=== PATIENT | female | born 1985 | race Two or more races ===

== ENCOUNTER 2021-07-20 15:00 | Outpatient (CLI) | payer SELFPAY ==
--- NOTE | 2021-07-20 15:00 | CER_PTH ---
PATIENT: CAREN HERNÁNDEZ LOC: [facility] U#:[id number] AGE/SX: 36/F ROOM: RE07/20/[address]: Dr. Dakotah Killian MD : 1985 BED: DIS: 07/20/2021 SPEC #: [id number] RECD: 07/21/21 11:08 STATUS: VAL JANIS #: [id number] ODALIS: 07/20/21 15:[address]: Dakotah Killian DEPT: SURGICAL PATHOLOGY RECD BY: Elaine Valentin Tissues: Uterine cervix, NOS Procedures: Surgery Specimen Level IV HEADER OPERATION: Cervical polyp removal PRE-OP DIAGNOSIS: Cervical polyp TISSUE SUBMITTED: Cervical polyp MICROSCOPIC DIAGNOSIS Cervical polyp, polypectomy: Benign endocervical polyp, inflamed AM:dennis 07/24/2021 MICROSCOPIC DESCRIPTION Slides are reviewed. GROSS DESCRIPTION Received in fixative is one container labeled with the patient's name and designated cervical polyp. The specimen consists of a mariano-pink polyp measuring 2 x 1 x 0.6 cm. The polyp is bisected. Also present in the container are multiple fragments of mariano mucoid tissue measuring in aggregate 3 x 2.5 x 0.3 cm. The specimen is totally submitted in two cassettes. / SJ:dennis 07/21/2021 TC:1 CPT: 17826
[2021-07-26 16:43] LABS: HPV Reflexed? NOT INDICATED
== END 2021-07-20 23:59 | disposition home or self-care (01) ==
LOC: LABSPEC 07-21 10:53
PROVIDERS: Visit Provider Obstetrics & Gynecology
DX: N84.1 Polyp of cervix uteri (principal)
CPT/HCPCS: 88175; 88305; G0145

== ENCOUNTER 2024-07-24 12:20 | Day surgery (SDC) | payer SELFPAY, OTHER ==
[2024-07-24] VITALS (8 sets, daily range): BP systolic 102–119; BP diastolic 75–79; PULSE 74–96; RESP 16; TEMP 36.2–36.5; O2SAT 98–100; BMI 36.0
[2024-07-24 13:07] LABS: Hematocrit 32.1 % (37-47); Hemoglobin 9.6 g/dL (12.0-15.0); Mean Corp Hgb Conc 29.9 g/dL (32-36); Mean Corpuscular Hgb 22.6 pg (27.0-32.0); Mean Corpuscular Volume 75.5 fL (81-99); Mean Platelet Vol. 10.5 fl (6.2-12.0); Platelet Count 419 K/mm3 (150-450); RBC Distribution Width CV 16.3 % (11.6-14.6); RBC Distribution Width SD 43.9 fl (35.1-43.9); Red Blood Count 4.25 M/mm3 (4.2-5.4); White Blood Count 5.3 K/mm3 (4.4-11.0)
[2024-07-24 13:15] LABS: Internal QC Validated? YES +Cl - CLEAR BKGD; Pregnancy, Urine Negative Negative
--- NOTE | 2024-07-24 13:36 | PCM.PRE.AN2 ---
ASA Classification* ASA Classification ASA Classification: 2 Assessment & Plan Anesthesia* Anesthesia Assessment Anesthesia Assessment: Discussed sedation and/or anesthesia options, risks, benefits, and alternatives with patient/parents/legal guardian/POA. Questions invited. The patient/parents/legal guardian/POA seems to understand and agrees to proceed with anesthesia plan. Reviewed the physical assessment, medical history, allergy history and patient home medications list prior to surgery/procedure/anesthetic and documented any changes. Performed airway and anesthesia risk assessments. Anesthesia Type Anesthesia Type: MAC History Source History Obtained from:: Patient and Chart Anesthesia Focused Assessment* Temperature: 97.7 F Pulse Rate: 96 Blood Pressure: 119/76 Respiratory Rate: 16 Pulse Ox: 98 Oxygen Delivery Method: Room Air Airway Assessment Mouth opens: >3 cm Mallampati Score: III Teeth Condition: Intact and Missing (Patient is missing a couple of molars right side. Rest of the teeth are tight.) Neck Range of motion (ROM): Full ROM Focused Labs Anesthesia Preop lab: CBC WBC 5.3 K/mm3 (4.4-11.0) 07/24/24 12:50 07/24/24 RBC 4.25 M/mm3 (4.2-5.4) 07/24/24 12:50 07/24/24 Hgb 9.6 g/dL (12.0-15.0) L 07/24/24 12:50 07/24/24 Hct 32.1 % (37-47) L 07/24/24 12:50 07/24/24 Plt Count 419 K/mm3 (150-450) 07/24/24 12:50 07/24/24 CHEMISTRY COAG Urine Test Negative Negative 07/24/24 12:35 07/24/24 Pre-Assessment Diagnosis/Proposed Procedure Planned Operative Procedure(s): Hysteroscopy,D&C, polypectomy, Symphion Anesthesia History Anesthesia History - acquisition advisor: Anesthesia History - acquisition advisor Hx Hospitalization No 07/06/24 09:46 Any Problems With Anesthesia No 07/06/24 09:46 Cholinesterase deficiency No 07/06/24 09:46 You/Your Family Experience No 07/06/24 09:46 fever (hyperthermia) with Relationship Recent Exposure to Contagious No 07/24/24 12:45 Disease Does patient have nerve No 07/06/24 09:46 stimulator Patient instructed to have device shut off --Does patient have Pacemaker No 07/24/24 12:45 or ICD? When Was Last Pacemaker Check QUESTION #4 FULL TEXT: You/Your Family Experience fever (hyperthermia) with Anesthesia Last Oral Intake Last Oral intake: Last Oral Intake NPO since 232907/24/24 12:45 Meds taken in AM with sips of Yes 07/24/24 12:45 water? Meds patient instructed to oxybutynin 07/24/24 12:45 take am of surgery Any additional information?: Yes Meds taken in AM with sips of water?: Yes PONV PONV - acquisition advisor: PONV - acquisition advisor Female Yes 07/06/24 09:46 HX of Motion Sickness No 07/06/24 09:46 HX of N/V After Surgery No 07/06/24 09:46 Non-Smoker Yes 07/06/24 09:46 Duration of Surgery greater No 07/06/24 09:46 than 60 minutes Number of Risk Factors 2 07/06/24 09:46 PONV Score Moderate Risk 07/06/24 09:46 Height & Weight Height & Weight: Anesthesia: Height & Weight Height 4 ft 11 in 07/24/24 12:45 Weight: 81 kg 07/24/24 12:45 Body Mass Index (BMI) 36.0 07/24/24 12:45 Respiratory Assessment Respiratory Assessment - acquisition advisor: Respiratory Tract Infection Hx - acquisition advisor Hx Respiratory Tract Infection No 07/06/24 09:46 STOP Sleep Apnea STOP Sleep Apnea - acquisition advisor: STOP Sleep Apnea - acquisition advisor Hx Hypertension No 07/06/24 09:46 Hx Sleep Apnea No 07/06/24 09:46 CPAP BIPAP Do you snore loudly (louder No 07/06/24 09:46 than talking or can be heard Do you often feel tired/ No 07/06/24 09:46 fatigued/ sleepy during daytime? Has anyone observed you stop No 07/06/24 09:46 breathing during sleep? STOP Results Negative 07/06/24 09:46 QUESTION #5 FULL TEXT : Do you snore loudly (louder than talking or can be heard through closed doors)? Tobacco Use History Tobacco Use History - acquisition advisor: Tobacco Use History - acquisition advisor Tobacco Use Smoking Status Never smoker 07/06/24 09:46 Hx Tobacco Use No 07/06/24 09:46 Years Smoking Packs Smoked per Day Smoking Cessation Date was within the last 15 years Hx Smoking Cessation Date Hx Smoking Cessation Counseling Hematologic Medial History Hematologic Hx - acquisition advisor: Hematologic Medical Hx - reed fixer Hx of Blood Transfusion No 07/06/24 09:46 Hx of Transfusion in last 3 No 07/06/24 09:46 Months Date of Last Transfusion (if within last 3 months) Ever experience any problems No 07/06/24 09:46 with transfusion(s)? Specify any problems Hx of Preganancy in last 3 N/A 07/06/24 09:46 Months Nurse Filling Out Transfusion NBUCHER 07/06/24 09:46 & Questions: Date: 07/06/24 07/06/24 09:46 Time: 09:47 07/06/24 09:46 Patient unable to answer at this time (ie. confused, unrespo /Reproduction History /Reproductive History - acquisition advisor: /Reproductive Hx- acquisition advisor Hx Now No 07/06/24 09:46 Gestational Age (in weeks): EDC: Hx Hx Para Hx Section SAB No 07/06/24 09:46 PFSH Medical History Wears glasses Braces as ambulation aid Crutches as ambulation aid Self-catheterizes urinary bladder Non-smoker History of spina bifida Home Medications ?Medication ?Instructions ?Recorded ?Last Taken ?Type oxybutynin chloride 5 mg tablet 5 mg PO TID 07/06/24 07/24/24 History Allergy/AdvReac Type Severity Reaction Status Date / Time piperacillin (From Zosyn) AdvReac Severe Chest Verified 07/24/24 12:44 tightness tazobactam (From Zosyn) AdvReac Severe Chest Verified 07/24/24 12:44 tightness Surgical History HAND ALMOND BLANCHER (ventriculoperitoneal) shunt status History of surgery (~2019) History of incision and drainage (~2019) Social History Smoking Status: Never smoker Review of Systems (Anesthesia) ROS Narrative System reviewed and no additional complaints, except as documented.
--- NOTE | 2024-07-24 14:00 | EMB_PTH ---
PATIENT: CAREN HERNÁNDEZ LOC: [facility] [place] U#:[id number] AGE/SX: 39/F ROOM: RE07/24/[address]: Dr. Tori Rendon DO : 1985 BED: DIS: 07/24/2024 SPEC #: [id number] RECD: 07/24/24 16:43 STATUS: VAL JANIS #: [id number] ODALIS: 07/24/24 14:[address]: Tori Rendon DEPT: SURGICAL PATHOLOGY RECD BY: Elaine Valentin ENTERED: 07/27/24 08:18 SP TYPE: ENDOM BX/C CASH DR: Dr. Collins Harry MD Tissues: A - Endometrium, NOS Procedures: Surgery Specimen Level IV HEADER OPERATION: Hysteroscopy, D&C, polypectomy PRE-OP DIAGNOSIS: Menorrhagia, dysmenorrhea, uterine polyp TISSUE SUBMITTED: A- Endometrial curettings MICROSCOPIC DIAGNOSIS A. Uterus, curettage: * Proliferative endometrium with areas of stromal breakdown and focal features of endometrial polyp formation MICROSCOPIC DESCRIPTION Slides are reviewed. GROSS DESCRIPTION A. Received in formalin in a container labeled with the patient's name, date of , and endometrial curettings are multiple red-mariano fragments of soft tissue admixed with blood and mucus measuring 2.7 x 2.3 x 1.4 cm in aggregate. Submitted in toto in A1-3. [facility] 07-27-2024 CPT:07809
--- NOTE | 2024-07-24 14:47 | PCM.DC ---
Discharge Instructions Diet Discharge Diet: No restrictions DC O2, CPAP, BIPAP needs Home O2 Discharge instructions: No Dressing / Incision Discharge Activity: May Drive (once you are more than 24 hours out from surgery) and May Shower (once you are more than 24 hours out from surgery) May resume sexual activity in: 1 week (nothing in the vagina and no soaking in water for 1 week while you are having the bleeding) Weight Bearing Status: Weight bearing as tolerated Lifting Restrictions: none Dressing / Incision Call your doctor if you observe: Fever of 101 or Higher, Using more than 1 pad per hour, Shortness of breath, Dizziness, Swelling in the ankles, Chest pain, Increased palpitations (irregular heartbeat), Calf discomfort and Uncontrolled pain Cleanse incision/area with: Soap & Water Follow Up Care Please Follow Up With: Tori Rendon DO When: 1 week post op Test Results: Test results from this visit will be discussed in further detail at your follow-up appointment, if applicable. Discharge Plan Admission Primary Reason for Your Visit: surgery Attending Provider: Tori Rendon Primary Care Provider: Collins Harry Instructions Patient Instructions: Dilation and Curettage Print Language: Korean Discharge Orders/Prescriptions Prescriptions: New ferrous sulfate 325 mg (65 mg iron) tablet,delayed release (DR/EC) 325 mg PO QODAY Qty: 30 0RF Continued oxybutynin chloride 5 mg tablet 5 mg PO TID Referrals / Follow Up: Collins Harry MD [Primary Care Provider] - Disposition Disposition (needs filled in before D/C Order can be placed): Home, Self Care
--- NOTE | 2024-07-24 14:48 | PCM.OPRPT ---
Problems Associated Problem List Diagnoses (1) DUB (dysfunctional uterine bleeding): (2) Menorrhagia: Operative Report (Standard) Operative Information Date of Procedure: 07/24/24 Pre-Operative Diagnosis: Menorrhagia, DUB, anemia Post-Operative Diagnosis: As above Surgery/Procedure Performed: Hysteroscopy, polypectomy, D&C mechanical cad designer: No Type of Anesthesia: MAC RN Documented Start/Stop Times: Operation Date: 07/24/24 14:00 Case Time Into Pre-Op 07/24/24 12:24 Out of Pre-Op 07/24/24 14:10 Anesthesia Start 07/24/24 14:13 Into Room 07/24/24 14:13 Procedure Start 07/24/24 14:30 Procedure Start Time: 14:30 Procedure Stop Time: 14:44 Select all DRAINS/GRAFTS/IMPLANTS that apply: None Estimated Blood Loss: < 20 mL Fluids Replaced: 400 mL Specimen collected: Yes Description of specimen(s) removed: Endometrial curretings Description of surgery: The patient was taken to the operating room where MAC anesthesia was induced and found to be adequate. She was prepped and draped in the dorsal lithotomy position using yellowfin stirrups. A weighted speculum was placed in the vagina to expose the cervix. The anterior lip of the cervix was grasped with a single-tooth tenaculum. The cervix was already 2 to 3 cm dilated. The Symphion hysteroscope was inserted into the uterus, and distended with normal saline as distention media. Bilateral tubal ostia were visualized. Visualization was slightly limited by thickened endometrium. There was a small possible polyp noted in the left cornua of the uterus which was resected using the resection device of the Symphion hysteroscope. The Symphion hysteroscope was then removed. A sharp curettage was performed. The endometrial curettings and possible endometrial polyp were sent to pathology for review. Bleeding was minimal at the completion of the procedure. All instruments were removed from the vagina. A vaginal sweep was performed. Instrument and sponge counts were correct. The patient was taken to the recovery room in stable condition Surgical Findings: Cervix dilated to 2-3 cm and clots present within the uterus and endocervical canal. Uterus sounded to 7 cm. Thickened appearing endometrium and a possible small polyp noted in the left cornua Complications Complications: No Admit VTE Documentation VTE Present on Admission: No VTE Mechan Device Prophylaxis: SCD's
--- NOTE | 2024-07-24 14:54 | PCM.POST.ANE ---
Anesthesia: Postop Eval I Current Vital Signs Temperature: 97.2 F Pulse Rate: 86 Blood Pressure: 106/79 Respiratory Rate: 16 Pulse Ox: 98 Assessment Airway patent: Yes Spontaneous unlabored respirations: Yes nausea: No Vomiting: No Anesthesia Complication: No Fluid Hydration Crystalloid volume administer (ml): 400 Total IV fluid infused: 400 Progress Note Anesthesia document: Postop Eval 1 completed: Yes
--- NOTE | 2024-07-24 18:07 | POSTOPAN2_ITS ---
Anesthesia Postop Eval I Sum Postop Eval Completion status Anesthesia document: Postop Eval 1 completed: Yes Anesthesia Postop Eval I Summary Anesthesia Postop Eval I Summary: Anesthesia Postop Eval I: Assessment Summary Airway patent Yes 07/24/24 14:54 ASSOCIATE PROFESSOR OF [employer].TNES Spontaneous unlabored Yes 07/24/24 14:54 ASSOCIATE PROFESSOR [employer].TNES respirations Mental status nausea No 07/24/24 14:54 ASSOCIATE PROFESSOR [employer].TNES Vomiting No 07/24/24 14:54 ASSOCIATE PROFESSOR [employer].TNES Anesthesia Postop Eval I: Fluid Summary Crystalloid volume administer 400 07/24/24 14:54 ASSOCIATE PROFESSOR [employer].TNES (ml) Colloids volume administered ( ml) Blood Product volume administered (ml) Total IV fluid infused 400 07/24/24 14:54 ASSOCIATE PROFESSOR [employer].TNES Anesthesia Postop Eval I: Summary Notes Anesthesia Complication No 07/24/24 14:54 ASSOCIATE PROFESSOR [employer].TNES Anesthesia Complication Comment: Post-operative progress note Anesthesia: Postop Eval II Evaluation Mental status: Awake and Calm Pain Level: 1 nausea: No Vomiting: No Complications Anesthesia Complication: No
--- NOTE | 2024-07-24 18:07 | PCM.POSTANE2 ---
Anesthesia Postop Eval I Sum Postop Eval Completion status Anesthesia document: Postop Eval 1 completed: Yes Anesthesia Postop Eval I Summary Anesthesia Postop Eval I Summary: Anesthesia Postop Eval I: Assessment Summary Airway patent Yes 07/24/24 14:54 SENIOR [email or web address].[email or web address] Spontaneous unlabored Yes 07/24/24 14:54 SENIOR INSTRUCTOR.[email or web address] respirations Mental status nausea No 07/24/24 14:54 SENIOR INSTRUCTOR.[email or web address] Vomiting No 07/24/24 14:54 SENIOR INSTRUCTOR.[email or web address] Anesthesia Postop Eval I: Fluid Summary Crystalloid volume administer 400 07/24/24 14:54 SENIOR INSTRUCTOR.TNES (ml) Colloids volume administered ( ml) Blood Product volume administered (ml) Total IV fluid infused 400 07/24/24 14:54 SENIOR INSTRUCTOR.TNES Anesthesia Postop Eval I: Summary Notes Anesthesia Complication No 07/24/24 14:54 SENIOR INSTRUCTOR.TNES Anesthesia Complication Comment: Post-operative progress note Anesthesia: Postop Eval II Evaluation Mental status: Awake and Calm Pain Level: 1 nausea: No Vomiting: No Complications Anesthesia Complication: No
== END 2024-07-24 16:06 | disposition home or self-care (01) ==
LOC: SDC 12:22 → AC 12:23
PROVIDERS: PCP Family Medicine; Referring Provider Obstetrics & Gynecology; Visit Provider Obstetrics & Gynecology
PROC: 0UB98ZZ Excision of Uterus, Via Natural or Artificial Opening Endoscopic (ICD-10-PCS; CPT 58558; principal; 2024-07-24 13:45)
DX: N92.0 Excessive and frequent menstruation with regular cycle (principal); D64.9 Anemia, unspecified; N93.8 Other specified abnormal uterine and vaginal bleeding; D25.9 Leiomyoma of uterus, unspecified; N92.4 Excessive bleeding in the premenopausal period; N94.6 Dysmenorrhea, unspecified; N84.0 Polyp of corpus uteri
CPT/HCPCS: 58558; 81025; 85027; 86850; 86900; 86901; 88305; A4216; J2405